=== PATIENT | male | born 1965 | race Native Hawaiian/Other Pacific Islander ===

== ENCOUNTER 2017-05-13 18:57 | Observation (INO) | payer OTHER ==
[2017-05-13 18:57] VITALS: BMI 22.3
[2017-05-13] MEDS ORDERED: Sodium Chloride 0.9% 500 ML IV STA (19:46)
[2017-05-13 20:16] LABS: BASO # 0.07 K/mm3 (0.0-2.0); BASO % 1.3 % (0.0-3.0); EOS # 0.1 (0.0-0.7); EOS % 1.1 % (1.5-5.0); GRAN # 3.89 (1.4-6.5); GRAN % 73.2 % (50.0-68.0); HEMOGLOBIN 14.7 gm/dL (14.0-18.0); LYMPH # 1.1 (1.2-3.4); LYMPH % 20.3 % (22.0-35.0); MEAN CELL VOLUME 86.3 fL (80.0-105.0); MEAN CORPUSCULAR HEMOGLOBIN 30.1 pg (25.0-35.0); MEAN CORPUSCULAR HGB CONC 34.8 g/dl (31.0-37.0); MEAN PLATELET VOLUME 9.1 fl (7.0-11.0); MONO # 0.2 (0.1-0.6); MONO % 4.1 % (1.0-6.0); PLATELET COUNT 212 10^3/uL (120.0-450.0); RBC 4.89 10^6/uL (3.5-6.1); RED CELL DISTRIBUTION WIDTH 13.1 % (11.5-14.5); WHITE BLOOD COUNT 5.3 10^3/ul (4.5-11.0)
[2017-05-13 20:22] LABS: ACETAMINOPHEN < 10.0 ug/ml (10.0-20.0); SALICYLATE < 1 mg/dL (2.0-20.0)
[2017-05-13 20:23] LABS: ALB/GLOB RATIO 1.4 (1.1-1.8); ALBUMIN 4.5 g/dL (3.0-4.8); ALT/SGPT 39 U/L (7-56); AST/SGOT 39 U/L (15-59); BLOOD UREA NITROGEN 12 mg/dL (7-21); GFR AFRICAN-AMERICAN > 60; GFR NON-AFRICAN AMERICAN > 60
--- NOTE | 2017-05-13 22:15 | ED PDOC ---
Arrival/HPI - General Chief Complaint: Weakness/Neurological Deficit Time Seen by Provider: 05/13/17 19:34 Historian: Patient - History of Present Illness Narrative History of Present Illness (Text): 05/13/17 19:45 Terence Song is a 52 year old male who presents to the emergency department complaining of generalized fatigue and near-syncope. States symptoms presented suddenly after reaching home from work. Describes symptoms as generalized weakness and "about to pass out." Currently states that symptoms are improving currently. Denies any fever, chills, headache, chest pain, shortness of breath, nausea, vomiting, or any other complaints at this time. Time/Duration: Prior to Arrival Symptom Course: Improving Severity Level: Mild Activities at Onset: Light Past Medical History - Provider Review Nursing Documentation Reviewed: Yes - Past Medical History Past Medical History: No Previous - Hematological/Oncological Other/Comment: pt's father is a doctor and pt spent some time in [place]. 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19 - Musculoskeletal/Rheumatological Hx Falls: No - Psychiatric Hx Substance Use: No - Past Surgical History Past Surgical History: No Previous - Anesthesia Hx Anesthesia: No Hx Anesthesia Reactions: No Hx Malignant Hyperthermia: No - Suicidal Assessment Feels Threatened In Home Enviroment: No Family/Social History - Physician Review Nursing Documentation Reviewed: Yes Family/Social History: No Known Family HX Smoking Status: Never Smoked Hx Alcohol Use: No Hx Substance Use: No Hx Substance Use Treatment: No Allergies/Home Meds Allergies/Adverse Reactions: Allergies ibuprofen [From Motrin] Allergy (Verified 05/13/17 19:26) RASH Sulfa (Sulfonamide Antibiotics) Allergy (Verified 05/13/17 19:26) RASH Home Medications: Home Meds Medication Instructions Recorded Confirmed Cholecalciferol (Vitamin D3) 5,000 iu PO QWK 04/01/15 05/13/17 [Vitamin D] Review of Systems - Physician Review All systems were reviewed & negative as marked: Yes - Review of Systems Constitutional: Fatigue. absent: Fevers Respiratory: Normal. absent: SOB, Cough Cardiovascular: Other (near syncope ). absent: Chest Pain, Palpitations Gastrointestinal: Normal. absent: Abdominal Pain, Diarrhea, Nausea, Vomiting Genitourinary Male: Normal Neurological: Dizziness. absent: Headache, Focal Weakness, Gait Changes, Speech Changes Psychiatric: Normal Physical Exam Vital Signs Reviewed: Yes Vital Signs Temp Pulse Pulse Resp BP Pulse Ox 05/14/17 02:46 98.5 F 62 62 18 162/97 H 05/14/17 02:05 62 16 143/64 99 05/13/17 22:00 60 16 150/91 H 99 05/13/17 19:21 99.2 F 80 18 162/91 H 98 Temperature: Afebrile Blood Pressure: Hypertensive Pulse: Regular Respiratory Rate: Normal Appearance: Positive for: Well-Appearing, Non-Toxic, Comfortable Pain Distress: None Mental Status: Positive for: Alert and Oriented X 3 - Systems Exam Head: Present: Atraumatic, Normocephalic Pupils: Present: PERRL Extroacular Muscles: Present: EOMI Conjunctiva: Present: Normal Mouth: Present: Moist Mucous Membranes Neck: Present: Normal Range of Motion. No: MIDLINE TENDERNESS, Paraspinal Tenderness Respiratory/Chest: Present: Clear to Auscultation, Good Air Exchange. No: Respiratory Distress, Accessory Muscle Use Cardiovascular: Present: Regular Rate and Rhythm, Normal S1, S2. No: Murmurs Abdomen: Present: Normal Bowel Sounds. No: Tenderness, Distention, Peritoneal Signs, Rebound, Guarding Upper Extremity: Present: Normal Inspection. No: Cyanosis, Edema Lower Extremity: Present: Normal Inspection. No: Edema Neurological: Present: GCS=15, CN II-XII Intact, Speech Normal, Motor Func Grossly Intact, Normal Sensory Function Skin: Present: Warm, Dry, Normal Color. No: Rashes Psychiatric: Present: Alert, Oriented x 3, Normal Insight, Normal Concentration Medical Decision Making ED Course and Treatment: 05/13/17 19:45 Impression: A 52 year old male who presents to the emergency department complaining of generalized weakness and near syncopal episode. Plan: -- CT Head -- EKG -- Labs, cardiac enzymes -- Chest X-ray -- IV Fluids -- Urinalysis -- Reassess and disposition Progress Notes: 05/13/17 20:15 EKG reviewed by me: Sinus bradycardia @ 56 bpm. Incomplete right bundle branch block. Minimal voltage criteria for LVH. 05/13/17 22:19 CT Head results reviewed: FINDINGS: Brain: Unremarkable. No hemorrhage. No significant white matter disease. No edema. Ventricles: Unremarkable. No ventriculomegaly. Bones/joints: Unremarkable. No acute fracture. Soft tissues: Unremarkable. Sinuses: Bilateral maxillary sinus polyps. Mastoid air cells: Unremarkable as visualized. No mastoid effusion. IMPRESSION: No acute findings. Patient was offered admission to the hospital for overnight observation following a near syncopal episode. But patient states he wants to sign out against medical advice. States he will follow up with his PMD tomorrow. I strongly advised to the patient to stay in the hospital for further monitoring, but patient states the he understands the risk of leaving against medical advice and is adamant in his decision. Leaving Against Medical Advice (AMA): The patient is choosing to leave against medical advice. I have personally explained to the patient that choosing to do so may result in permanent bodily harm or . I have discussed at great length that without further evaluation and monitoring there may be unforeseen circumstances and/or deterioration causing permanent bodily harm or as a result of their choice. The patient is alert, oriented, and shows the mental capacity to make clear decisions regarding the patients health care at this time. The patient continues to wish to leave against medical advice. The patient has been advised that they should return to the emergency room immediately if they change their mind at any time, or if their condition begins to change or worsen in any way. pt now agree to stay case d/w dr stanley accepts case 05/14/17 23:46 - Lab Interpretations Lab Results: 05/13/17 20:00 05/13/17 20:00 Lab Results 05/13/17 23:30: Urine Color Yellow, Urine Appearance Clear, Urine pH 7.0, Ur Specific [place] 1.010, Urine Protein Negative, Urine Glucose (UA) Negative, Urine Ketones Negative, Urine Blood Negative, Urine Nitrate Negative, Urine Bilirubin Negative, Urine Urobilinogen 0.2, Ur Leukocyte Esterase Negative 05/13/17 20:00: Salicylates < 1 L, Acetaminophen < 10.0 L 05/13/17 20:00: Sodium 142, Potassium 3.7, Chloride 102, Carbon Dioxide 27, Anion Gap 17, BUN 12, Creatinine 0.9, Est GFR ( Amer) > 60, Est GFR (Non- Af Amer) > 60, Random Glucose 143 H, Calcium 9.0, Total Bilirubin 0.8, AST 39, ALT 39, Alkaline Phosphatase 51, Total Protein 7.7, Albumin 4.5, Globulin 3.2, Albumin/Globulin Ratio 1.4 05/13/17 20:00: WBC 5.3 D, RBC 4.89, Hgb 14.7, Hct 42.2, MCV 86.3, MCH 30.1, MCHC 34.8, RDW 13.1, Plt Count 212, MPV 9.1, Gran % 73.2 H, Lymph % (Auto) 20.3 L, [place] % (Auto) 4.1, Eos % (Auto) 1.1 L, Baso % (Auto) 1.3, Gran # 3.89, Lymph # 1.1 L, [place] # 0.2, Eos # 0.1, Baso # 0.07 I have reviewed the lab results: Yes - RAD Interpretation Radiology Orders: 05/13/17 19:47 CHEST PORTABLE [RAD] Stat 05/13/17 19:50 HEAD W/O CONTRAST [CT] Stat - EKG Interpretation Interpreted by ED Physician: Yes Type: 12 lead EKG - Medication Orders Current Medication Orders: Discontinued Medications Sodium Chloride (Sodium Chloride 0.9%) 500 mls @ 1,000 mls/hr IV .Q30M STA Stop: 05/13/17 20:15 Last Admin: 05/13/17 19:58 Dose: 1,000 mls/hr - Scribe Statement The provider has reviewed the documentation as recorded by the Eva Stapleton Provider Attestation: Provider Scribe Attestation: All medical record entries made by the Evelinaibpepito were at my direction and personally dictated by me. I have reviewed the chart and agree that the record accurately reflects my personal performance of the history, physical exam, medical decision making, and the department course for this patient. I have also personally directed, reviewed, and agree with the discharge instructions and disposition. Disposition/Present on Arrival - Present on Arrival Any Indicators Present on Arrival: No History of DVT/PE: No History of Uncontrolled Diabetes: No Urinary Catheter: No History of Decub. Ulcer: No History Surgical Site Infection Following: None - Disposition Have Diagnosis and Disposition been Completed?: Yes Diagnosis: Near syncope Disposition: HOSPITALIZED Disposition Time: 23:00 Condition: FAIR
[2017-05-13 22:34] VITALS: O2SAT 99
[2017-05-14 00:09] LABS: URINE BILIRUBIN NEGATIVE (NEGATIVE); URINE BLOOD NEGATIVE (NEGATIVE); URINE GLUCOSE (UA) NEGATIVE (NEGATIVE); URINE LEUKOCYTE ESTERASE NEGATIVE Leu/uL (NEGATIVE); URINE NITRATE NEGATIVE (NEGATIVE); URINE PROTEIN NEGATIVE mg/dL (<30 mg/dL); URINE UROBILINOGEN 0.2 E.U./dL (<1 E.U./dL)
[2017-05-14 00:19] LABS: URINE APPEARANCE CLEAR (CLEAR); URINE COLOR YELLOW (YELLOW)
[2017-05-14 06:25] VITALS: RESP 20
--- NOTE | 2017-05-14 09:18 | RAD ---
HISTORY: weakness COMPARISON: 04/01/2015 FINDINGS: LUNGS: No active pulmonary disease. PLEURA: No significant pleural effusion identified, no pneumothorax apparent. CARDIOVASCULAR: Probably top-normal. Study is rotated towards the left Central pulmonary vasculature probably top-normal OSSEOUS STRUCTURES: No significant abnormalities. VISUALIZED UPPER ABDOMEN: Normal. OTHER FINDINGS: None. IMPRESSION: No active disease.
--- NOTE | 2017-05-14 09:52 | CT ---
PROCEDURE: CT HEAD WITHOUT CONTRAST. HISTORY: mcdaniel COMPARISON: None available. TECHNIQUE: Axial computed tomography images were obtained through the head/brain without intravenous contrast. Radiation dose: Total exam DLP = 780 mGy-cm. This CT exam was performed using one or more of the following dose reduction techniques: Automated exposure control, adjustment of the mA and/or kV according to patient size, and/or use of iterative reconstruction technique. FINDINGS: HEMORRHAGE: No intracranial hemorrhage. BRAIN: No mass effect or edema. No atrophy or chronic microvascular ischemic changes. VENTRICLES: Unremarkable. No hydrocephalus. CALVARIUM: Unremarkable. PARANASAL SINUSES: Unremarkable as visualized. No significant inflammatory changes. MASTOID AIR CELLS: Unremarkable as visualized. No inflammatory changes. OTHER FINDINGS: The report concurs with the preliminary [facility] report IMPRESSION: Normal CT of the Head.
[2017-05-14 12:41] VITALS: BP 148/62; PULSE 60; TEMP 98.5
--- NOTE | 2017-05-14 12:54 | CARD ---
APPROVED REPORT EKG Measurement Heart [id number] <Conclusion> Sinus bradycardia Incomplete right bundle branch block Minimal voltage criteria for LVH, may be normal variant Borderline ECG
--- NOTE | 2017-05-14 20:21 | HP ---
HISTORY OF PRESENT ILLNESS: This is a 52-year-old male who has come into the hospital complaining of fatigue. He states he felt weak. He had played 2 hours of tennis over the weekend. He says he had gone to his car and stuck for about 10 minutes. He had difficulty with walking normally. So, he came in to the ER for further evaluation. The patient had no complaints. He had no fevers or chills, no nausea, no vomiting, no abdominal pain or back pain, no dysuria, frequency, no nocturia. No focal weakness in the arms or legs. All other review of symptoms are within normal limits except what is mentioned. ALLERGIES: IBUPROFEN AND SULFA. FAMILY HISTORY: Significant for coronary artery disease. PAST MEDICAL HISTORY: Meningitis. SOCIAL HISTORY: He denies smoking, drinking. 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 HOME MEDICATIONS: Vitamin D. PHYSICAL EXAMINATION VITAL SIGNS: Temperature is 98, pulse is 60, blood pressure is 140/83, respirations 20, O2 saturation 99%. Height is 5 feet 9 inches, weight is 148 pounds. BMI is 21. GENERAL: The patient is lying in bed flat, comfortable, in no acute distress. HEENT: Anicteric sclera. Moist mucosa. Mucous membranes are pink and moist. NECK: No JVD, adenopathy, thyromegaly or bruits. CARDIOVASCULAR: S1, S2 are regular. No murmurs, rubs or gallops. LUNGS: Good bilateral air entry. No wheezes, rales or rhonchi. ABDOMEN: Bowel sounds are positive, soft, nontender, nondistended. No hepatosplenomegaly. NEUROLOGICAL: No facial asymmetry. Tongue is midline. No uvular deviation. Power is 5/5 in upper extremity and lower extremity and he is able to stand on one foot. He is able to walk normally. SKIN: Good skin turgor. No rashes. EXTREMITIES: No edema. 2+ pulses. Full range of motion. PSYCHIATRIC: He is alert, awake, and oriented x3. He has good insight, no anxiety. Normal affect. LYMPHADENOPATHY: No anterior or posterior cervical adenopathy. IMAGING: He had a CT of the head done that showed no acute findings. EKG showed sinus bradycardia 56. No ST-T changes. He had an echo done in 03/2015 that showed that the LV function was normal. There is mild concentric LVH. He had a stress test done in 03/2015 which was normal. ASSESSMENT: Fatigued. PLAN: The patient is currently comfortable. His blood work is fairly normal. He had salicylates and acetaminophen that was negative. Urine for blood, nitrites, and bilirubin are negative. The patient is going to be discharged home. The chest x-ray showed no infiltrates. He was given IV fluids. He is going to follow up as an outpatient in the office. DIET: 2-g sodium. CONDITION: Stable. ACTIVITIES: Increase as tolerated. Richard Woodson MD
== END 2017-05-14 16:15 | disposition home or self-care (01) ==
LOC: ED 18:57 → ERH 05-14 01:07 → 2RNO 05-14 02:54
PROVIDERS: ADMIT Internal Medicine Nephrology; ATTEND Internal Medicine Nephrology
DX: R53.1 Weakness (principal); R53.83 Other fatigue; Z88.2 Allergy status to sulfonamides; Z82.49 Family history of ischemic heart disease and other diseases of the circulatory system
CPT/HCPCS: 70450; 71010; 80053; 80329; 81003; 85025; 93005; 96360; 99285; G0378; J7040

== ENCOUNTER 2017-11-18 10:21 | Emergency (ER) | payer BC, OTHER ==
[2017-11-18 10:22] VITALS: BMI 22.3
[2017-11-18 10:53] VITALS: RESP 18; TEMP 98.7
--- NOTE | 2017-11-18 11:33 | ED PDOC ---
Arrival/HPI - General Chief Complaint: Cough, Cold, Congestion Time Seen by Provider: 11/18/17 11:20 Historian: Patient - History of Present Illness Narrative History of Present Illness (Text): 11/18/17 11:32 A 52 year old male presents to the emergency department complaining of cold like symptoms for the past 12 days. Patient reports his symptoms began before traveling to the [facility] over two weeks ago. States family member had cold symptoms. He noted a subjective fever, chills, productive cough, nasal congestion and sore throat. While in the [facility] he was seen by a physician who prescribed him ampicillin and Robitussin. He reports following up with his PMD after traveling back, who represcribed ampicillin. Patient reports this morning he developed chest pain while taking deep breaths and blood tinged sputum, which caused him to come in for further evaluation. Patient denies any nausea, vomiting, abdominal pain, urinary symptoms, lower extremity pain/ swelling, or any other complaints. Patient had a normal stress test done in 2014. Denies calf pain or swelling. Denies dizziness or palpitations. Reports feeling very congested and that it is difficult to breathe through his nose. No facial swelling. No pain with eye movements. PMD: Dr. Woodson 11/20/17 15:53 Time/Duration: Other (12 days) Context: Home Past Medical History - Provider Review Nursing Documentation Reviewed: Yes - Travel History If Yes, travel location?: [facility] - Infectious Disease Hx of Infectious Diseases: None - Past Medical History Past Medical History: No Previous - Pulmonary Hx Respiratory Disorders: Yes Hx Bronchitis: Yes - Neurological Hx Neurological Disorder: Yes Hx Meningitis: Yes - Hematological/Oncological Other/Comment: pt's father is a doctor and pt spent some time in [place]. 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19 - Musculoskeletal/Rheumatological Hx Musculoskeletal Disorders: No - Gastrointestinal Hx Gastrointestinal Disorders: No - Genitourinary/Gynecological Hx Genitourinary Disorders: No - Psychiatric Hx Psychophysiologic Disorder: No Hx Substance Use: No - Past Surgical History Past Surgical History: No Previous - Anesthesia Hx Anesthesia: No Hx Anesthesia Reactions: No Hx Malignant Hyperthermia: No - Suicidal Assessment Feels Threatened In Home Enviroment: No Family/Social History - Physician Review Nursing Documentation Reviewed: Yes Family/Social History: No Known Family HX Smoking Status: Never Smoked Hx Alcohol Use: No Hx Substance Use: No Hx Substance Use Treatment: No Allergies/Home Meds Allergies/Adverse Reactions: Allergies ibuprofen [From Motrin] Allergy (Verified 11/18/17 10:53) RASH Sulfa (Sulfonamide Antibiotics) Allergy (Verified 11/18/17 10:53) RASH Home Medications: Home Meds Medication Instructions Recorded Confirmed AMPicillin [Ampicillin] 500 mg PO TID 11/18/17 11/18/17 Review of Systems - Review of Systems Constitutional: Fevers, Night Sweats ENT: Sore Throat, Rhinorrhea, Sinus Congestion Respiratory: Cough, Sputum Cardiovascular: Chest Pain. absent: CARTAGENA Gastrointestinal: absent: Abdominal Pain, Nausea, Vomiting Genitourinary Male: absent: Dysuria, Frequency, Hematuria Skin: absent: Rash Neurological: absent: Headache, Dizziness Endocrine: absent: Diaphoresis Hemo/Lymphatic: absent: Easy Bleeding Physical Exam - Physical Exam Narrative Physical Exam (Text): Head: Atraumatic. Normocephalic. Eyes: PERRL. EOMI. Conjunctivae are not pale. ENT: Mucous membranes are moist and intact. Oropharynx is clear and symmetric. No facial edema. Rhinorrhea, clear. Neck: Supple. Full ROM. No JVD. No lymphadenopathy. Cardiovascular: Regular rate. Regular rhythm. No murmurs, rubs, or gallops. Distal pulses are 2+ and symmetric. Pulmonary/Chest: No evidence of respiratory distress. Clear to auscultation bilaterally. No wheezing, rales or rhonchi. Palpable chest wall discomfort with no erythema or edema. Abdominal: Soft and non-distended. There is no tenderness. No rebound, guarding, or rigidity. No organomegaly. Good bowel sounds. Back: No CVA tenderness. Extremities: No edema. No cyanosis. No clubbing. Full range of motion in all extremities. No calf tenderness. Skin: Skin is warm and dry. No petechiae. No purpura. Neurological: Alert, awake, and oriented . Motor and sensory intact with no meningeal signs. Psychiatric: Good eye contact. Normal interaction, affect, and behavior. Vital Signs Reviewed: Yes Vital Signs Temp Pulse Resp BP Pulse Ox 11/18/17 14:22 77 18 132/73 98 11/18/17 10:48 98.7 F 79 18 158/79 H 97 Temperature: Afebrile Blood Pressure: Hypertensive Pulse: Regular Respiratory Rate: Normal Appearance: Positive for: Well-Appearing, Non-Toxic, Comfortable Pain Distress: None Mental Status: Positive for: Alert and Oriented X 3 Medical Decision Making ED Course and Treatment: 11/18/17 11:32 Impression: A 52 year old male with chest pain while taking deep breaths and blood tinged sputum since this morning. Patient notes subjective fever, chills, productive cough, nasal congestion and sore throat. Differential Diagnosis included but are not limited to: PNA vs. Sinusitis vs. PE vs. Bronchitis Plan: -- Chest xray -- EKG -- Labs -- Influenza A B stat -- Reassess and disposition Progress Notes: Patient's pain is worse with coughing, and breaths. No wheezing or hypoxia. No known prior hx of dvt. Nonsmoker. No previously known hypercoagulable state. As pain with coughing and movements, current pain unlikely cardiac in nature as EKG , troponin and hx not typical of cardiac etiology. Ddimer unremarkable. No gross hematemesis. Sputum is mildly blood tinged. Report Date : 11/18/2017 13:49:23 Procedure: Chest xray Dictator : Nicola Salguero MD IMPRESSION: No active disease. Suspect bronchitis, URI. As nontoxic, no respiratory distress, limitations of imaging studies reviewed with patient and communicated with his PMD and patient for close follow-up. 11/20/17 16:05 - Lab Interpretations Lab Results: 11/18/17 11:50 11/18/17 11:50 Lab Results 11/18/17 11:50: Sodium 139, Potassium 3.9, Chloride 103, Carbon Dioxide 28, Anion Gap 12, BUN 12, Creatinine 0.8, Est GFR ( Amer) > 60, Est GFR (Non- Af Amer) > 60, Random Glucose 99, Calcium 9.2, Total Bilirubin 0.7, AST 37, ALT 62 H, Alkaline Phosphatase 75, Lactate Dehydrogenase 446, Total Creatine Kinase 151, Troponin I < 0.01 D, NT-Pro-B Natriuret Pep 23.6, Total Protein 8.0, Albumin 4.6, Globulin 3.4, Albumin/Globulin Ratio 1.4 11/18/17 11:50: PT 12.5, INR 1.09 H, APTT 32.6, D-Dimer, Quantitative < 200 11/18/17 11:50: Influenza Typ A,B (EIA) Negative for flu a/b 11/18/17 11:50: WBC 9.1 D, RBC 4.76, Hgb 14.3, Hct 41.6 L, MCV 87.4, MCH 30.0, MCHC 34.4, RDW 12.8, Plt Count 256, MPV 8.9, Gran % 78.0 H, Lymph % (Auto) 12.7 L, [place] % (Auto) 8.2 H, Eos % (Auto) 0.9 L, Baso % (Auto) 0.2, Gran # 7.08 H, Lymph # 1.2, [place] # 0.7 H, Eos # 0.1, Baso # 0.02 I have reviewed the lab results: Yes - RAD Interpretation Radiology Orders: 11/18/17 11:33 CHEST TWO VIEWS (PA/LAT) [RAD] Stat 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 I have reviewed the chart and agree that the record accurately reflects my personal performance of the history, physical exam, medical decision making, and the department course for this patient. I have also personally directed, reviewed, and agree with the discharge instructions and disposition. Disposition/Present on Arrival - Present on Arrival Any Indicators Present on Arrival: No History of DVT/PE: No History of Uncontrolled Diabetes: No Urinary Catheter: No History of Decub. Ulcer: No History Surgical Site Infection Following: None - Disposition Have Diagnosis and Disposition been Completed?: Yes Diagnosis: Bronchitis Disposition: HOME/ ROUTINE Disposition Time: 14:14 Patient Plan: Discharge Condition: GOOD Discharge Instructions (ExitCare): Sinusitis (ED), Acute Bronchitis (ED) Additional Instructions: For any facial swelling, any chest pain, any shortness of breath, any headaches , any leg pain or swelling, any rash, any fevers, any difficulty swallowing, any persistent or worsening of symptoms, get rechecked. Follow-up with your physician in 1-2 days. Prescriptions: Azithromycin [Zithromax] 250 mg PO DAILY #6 tab Cetirizine HCl [Zyrtec] 10 mg PO DAILY #5 capsule Referrals: Richard Woodson MD [Primary Care Provider] - Follow up with primary Forms: [facility] (Serbian), WORK NOTE
[2017-11-18 12:01] LABS: BASO # 0.02 K/mm3 (0.0-2.0); BASO % 0.2 % (0.0-3.0); EOS # 0.1 (0.0-0.7); EOS % 0.9 % (1.5-5.0); GRAN # 7.08 (1.4-6.5); HEMOGLOBIN 14.3 g/dL (14.0-18.0); LYMPH # 1.2 (1.2-3.4); LYMPH % 12.7 % (22.0-35.0); MEAN CELL VOLUME 87.4 fl (80.0-105.0); MEAN CORPUSCULAR HGB CONC 34.4 g/dl (31.0-37.0); MEAN PLATELET VOLUME 8.9 fl (7.0-11.0); MONO # 0.7 (0.1-0.6); MONO % 8.2 % (1.0-6.0); RBC 4.76 10^6/uL (3.5-6.1); RED CELL DISTRIBUTION WIDTH 12.8 % (11.5-14.5); WHITE BLOOD COUNT 9.1 10^3/ul (4.5-11.0)
[2017-11-18 12:11] LABS: ALB/GLOB RATIO 1.4 (1.1-1.8); ALBUMIN 4.6 g/dL (3.0-4.8); ALT/SGPT 62 U/L (7-56); AST/SGOT 37 U/L (17-59); BLOOD UREA NITROGEN 12 mg/dL (7-21); CALCIUM 9.2 mg/dL (8.4-10.5); GFR AFRICAN-AMERICAN > 60; GFR NON-AFRICAN AMERICAN > 60
[2017-11-18 12:17] LABS: INR 1.09 (0.93-1.08); PARTIAL THROMBOPLASTIN TIME 32.6 Seconds (25.1-36.5); PROTHROMBIN TIME 12.5 SECONDS (9.4-12.5)
[2017-11-18 12:22] LABS: D DIMER < 200 ng/mL (0-243)
[2017-11-18 12:23] LABS: B-TYPE NATRIURETIC PEPTIDE 23.6 pg/mL (0-450); TROPONIN I < 0.01 ng/mL
--- NOTE | 2017-11-18 13:51 | RAD ---
HISTORY: cough for two weeks, chest pain COMPARISON: 05/13/2017 TECHNIQUE: Chest PA and lateral FINDINGS: LUNGS: No active pulmonary disease. PLEURA: No significant pleural effusion identified. No pneumothorax apparent. CARDIOVASCULAR: Normal. OSSEOUS STRUCTURES: No significant abnormalities. VISUALIZED UPPER ABDOMEN: Normal. OTHER FINDINGS: None. IMPRESSION: No active disease.
[2017-11-18 14:57] VITALS: BP 132/73; PULSE 77; O2SAT 98
--- NOTE | 2017-11-18 16:56 | CARD ---
APPROVED REPORT EKG Measurement Heart [id number] <Conclusion> Normal sinus rhythm Incomplete right bundle branch block Borderline ECG
== END 2017-11-18 14:58 | disposition home or self-care (01) ==
LOC: ED 10:21
DX: J40 Bronchitis, not specified as acute or chronic (principal)

== ENCOUNTER 2018-01-02 13:33 | Emergency (ER) | payer OTHER ==
[2018-01-02 13:33] VITALS: BMI 22.3
[2018-01-02 13:46] VITALS: TEMP 98.6
--- NOTE | 2018-01-02 14:20 | ED PDOC ---
Arrival/HPI - General Chief Complaint: Body Fluid Exposure Time Seen by Provider: 01/02/18 13:51 Historian: Patient - History of Present Illness Narrative History of Present Illness (Text): 01/02/18 14:10 52 year old male, who is an employee at [employer], presents to the emergency department for evaluation s/p incident at work. 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 Patient denies other complaints and notes washing his face after the incident. PMD: Dr. Woodson Time/Duration: Prior to Arrival Symptom Onset: Sudden Symptom Course: Unchanged Context: Work Past Medical History - Provider Review Nursing Documentation Reviewed: Yes - Infectious Disease Hx of Infectious Diseases: None - Past Medical History Past Medical History: No Previous - Cardiac Hx Cardiac Disorders: No - Pulmonary Hx Respiratory Disorders: Yes Hx Bronchitis: Yes - Neurological Hx Neurological Disorder: Yes Hx Meningitis: Yes - HEENT Hx HEENT Disorder: No - Renal Hx Renal Disorder: No - Endocrine/Metabolic Hx Endocrine Disorders: No - Hematological/Oncological Hx Blood Disorders: Yes Other/Comment: malaria - Musculoskeletal/Rheumatological Hx Musculoskeletal Disorders: No - Gastrointestinal Hx Gastrointestinal Disorders: No - Genitourinary/Gynecological Hx Genitourinary Disorders: No - Psychiatric Hx Psychophysiologic Disorder: No Hx Substance Use: No - Past Surgical History Past Surgical History: No Previous - Anesthesia Hx Anesthesia: No Hx Anesthesia Reactions: No Hx Malignant Hyperthermia: No - Suicidal Assessment Feels Threatened In Home Enviroment: No Family/Social History - Physician Review Nursing Documentation Reviewed: Yes Family/Social History: Unknown Family HX Smoking Status: Never Smoked Hx Alcohol Use: No Hx Substance Use: No Hx Substance Use Treatment: No Allergies/Home Meds Allergies/Adverse Reactions: Allergies ibuprofen [From Motrin] Allergy (Verified 01/02/18 13:42) RASH Sulfa (Sulfonamide Antibiotics) Allergy (Verified 01/02/18 13:42) RASH Home Medications: Home Meds Medication Instructions Recorded Confirmed No Known Home Med 01/02/18 01/02/18 Review of Systems - Physician Review All systems were reviewed & negative as marked: Yes - Review of Systems Constitutional: Other (medical clearance for patient sneezing on his face). absent: Fevers Respiratory: absent: SOB Physical Exam Vital Signs Reviewed: Yes Vital Signs Temp Pulse Resp BP Pulse Ox 01/02/18 14:55 78 18 126/82 99 01/02/18 13:42 98.6 F 73 16 145/88 98 Temperature: Afebrile Blood Pressure: Normal Pulse: Regular Respiratory Rate: Normal Appearance: Positive for: Well-Appearing, Non-Toxic, Comfortable Pain Distress: None Mental Status: Positive for: Alert and Oriented X 3 - Systems Exam Head: Present: Atraumatic, Normocephalic Pupils: Present: PERRL Extroacular Muscles: Present: EOMI Conjunctiva: Present: Normal Mouth: Present: Moist Mucous Membranes Nose (External): Present: Atraumatic Neck: No: Meningeal Signs, MIDLINE TENDERNESS, Paraspinal Tenderness, Lymphadenopathy Respiratory/Chest: Present: Clear to Auscultation, Good Air Exchange. No: Respiratory Distress, Accessory Muscle Use, Wheezes, Rales, Retracting, Rhonchi Cardiovascular: Present: Regular Rate and Rhythm, Normal S1, S2. No: Murmurs Neurological: Present: GCS=15, CN II-XII Intact, Speech Normal Skin: Present: Warm, Dry, Normal Color. No: Rashes Psychiatric: Present: Alert, Oriented x 3, Normal Insight, Normal Concentration Medical Decision Making ED Course and Treatment: 01/02/18 Impression: 52 year old male with unremarkable physical exam who came in for medical clearance s/p patient's fluid exposure Plan: -- Patient was exposed to minimal body fluid as described. He is at low risk for lara HIV, hepatitis or any other illness from this patient. He irrigated his face well. We discussed the options together for Post exposure prophylaxis and agreed that since it was such a low risk there is no indication for treatment at this time. Patient will make sure to follow up withe [facility]. He was given ample opportunity to ask any questions. Progress Notes: 01/05/18 11:11 I called the patient today to review the lab results with him. He was informed to make sure to follow up with [facility] and that he will need repeat blood work in the future as directed by Prim Laundry. Patient does not have any medical complaints at this time. - Lab Interpretations Lab Results: 01/02/18 14:30 01/02/18 14:30 Lab Results 01/02/18 14:30: RPR Nonreactive 03/09/18 14:30: HIV 1&2 Antibody Screen Negative 01/02/18 14:30: Hep Bs Antibody Positive 01/02/18 14:30: Hepatitis A IgM Ab Negative, Hep Bs Antigen Negative, Hep B Core IgM Ab Negative, Hepatitis C Antibody Negative 01/02/18 14:30: Sodium 141, Potassium 3.6, Chloride 103, Carbon Dioxide 27, Anion Gap 15, BUN 14, Creatinine 0.7 L, Est GFR ( Amer) > 60, Est GFR ( Non-Af Amer) > 60, Random Glucose 143 H, Calcium 9.3, Total Bilirubin 0.7, AST 36, ALT 41, Alkaline Phosphatase 50, Total Protein 7.7, Albumin 4.4, Globulin 3.3, Albumin/Globulin Ratio 1.3, Amylase 85 01/02/18 14:30: WBC 5.3 D, RBC 4.84, Hgb 14.4, Hct 42.2, MCV 87.2, MCH 29.8, MCHC 34.1, RDW 13.5, Plt Count 236, MPV 8.9, Gran % 61.0, Lymph % (Auto) 30.8, Bennett % (Auto) 5.3, Eos % (Auto) 2.3, Baso % (Auto) 0.6, Gran # 3.21, Lymph # ( Auto) 1.6, Bennett # (Auto) 0.3, Eos # (Auto) 0.1, Baso # (Auto) 0.03 - Scribe Statement The provider has reviewed the documentation as recorded by the Eva Dominguez Provider Scribe Attestation: All medical record entries made by the Eva were at my direction and personally dictated by me. I have reviewed the chart and agree that the record accurately reflects my personal performance of the history, physical exam, medical decision making, and the department course for this patient. I have also personally directed, reviewed, and agree with the discharge instructions and disposition. Disposition/Present on Arrival - Present on Arrival Any Indicators Present on Arrival: No History of DVT/PE: No History of Uncontrolled Diabetes: No Urinary Catheter: No History of Decub. Ulcer: No History Surgical Site Infection Following: None - Disposition Have Diagnosis and Disposition been Completed?: Yes Diagnosis: Exposure to blood or body fluid Disposition: HOME/ ROUTINE Disposition Time: 14:56 Patient Plan: Discharge Condition: GOOD Additional Instructions: Mr Song, thank you for letting us take care of you today. Your provider was Dr. Ngo. You were treated for Fluid Exposure. The emergency medical care you received today was directed at your acute symptoms. If you were prescribed any medication, please fill it and take as directed. It may take several days for your symptoms to resolve. Return to the Emergency Department if your symptoms worsen, do not improve, or if you have any other problems. [facility] Employee Regarding your Work Related Injury, you are instructed to do all of the following by next day: 1. Notify [facility] Employee Health Department of the sustained injury and arrange for any follow-up appointments if needed during the next business day. If the office is closed or no answer is received, please leave a detailed voice message. 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 Employee Health can be reached at [phone]. 2. If there is time lost, notify [facility] Human Resources Department of the work related injury the next business day at [phone]. Thank you for allowing the [employer] team to be part of your care today. If you had an X-Ray or CT scan: A Radiologist will review the ED reading if any change in treatment is needed we will contact you. If you had a blood, urine, or wound culture: It will take several days for the results, if any change in treatment is needed we will contact you. If you had an STI test: It will take 48 hours for the results. Please call after 1 week if you have not heard back. Referrals: Richard Woodson MD [Primary Care Provider] - Follow up with primary Forms: [employer] (Czech)
[2018-01-02 14:49] LABS: BASO # 0.03 K/mm3 (0.0-2.0); BASO % 0.6 % (0.0-3.0); EOS # 0.1 (0.0-0.7); EOS % 2.3 % (1.5-5.0); GRAN # 3.21 (1.4-6.5); HEMOGLOBIN 14.4 g/dL (14.0-18.0); LYMPH # 1.6 (1.2-3.4); LYMPH % 30.8 % (22.0-35.0); MEAN CELL VOLUME 87.2 fl (80.0-105.0); MEAN CORPUSCULAR HEMOGLOBIN 29.8 pg (25.0-35.0); MEAN CORPUSCULAR HGB CONC 34.1 g/dl (31.0-37.0); MEAN PLATELET VOLUME 8.9 fl (7.0-11.0); MONO # 0.3 (0.1-0.6); MONO % 5.3 % (1.0-6.0); RBC 4.84 10^6/uL (3.5-6.1); RED CELL DISTRIBUTION WIDTH 13.5 % (11.5-14.5); WHITE BLOOD COUNT 5.3 10^3/ul (4.5-11.0)
[2018-01-02 14:56] VITALS: BP 126/82; PULSE 78; RESP 18; O2SAT 99
[2018-01-02 15:01] LABS: ALB/GLOB RATIO 1.3 (1.1-1.8); ALBUMIN 4.4 g/dL (3.0-4.8); ALT/SGPT 41 U/L (7-56); AMYLASE 85 U/L (35-125); AST/SGOT 36 U/L (17-59); BLOOD UREA NITROGEN 14 mg/dL (7-21); CALCIUM 9.3 mg/dL (8.4-10.5); GFR AFRICAN-AMERICAN > 60; GFR NON-AFRICAN AMERICAN > 60
[2018-01-02 22:29] LABS: HEPATITIS B SURFACE AG Negative (NEGATIVE)
[2018-01-02 22:35] LABS: HEPATITIS A IGM NEGATIVE (NEGATIVE); HEPATITIS B CORE AB NEGATIVE (NEGATIVE)
[2018-01-02 22:47] LABS: HEPATITIS C ANTIBODY NEGATIVE (NEGATIVE)
== END 2018-01-02 14:56 | disposition home or self-care (01) ==
LOC: ED 13:33
DX: Z77.21 Contact with and (suspected) exposure to potentially hazardous body fluids (principal)

== ENCOUNTER 2018-12-22 13:25 | Outpatient (CLI) | payer OTHER | END 2018-12-22 13:26 | disposition home or self-care (01) | LOC: LAB 13:25 ==

== ENCOUNTER 2019-03-25 09:09 | Emergency (ER) | payer OTHER ==
[2019-03-25 09:27] VITALS: BMI 21.2
--- NOTE | 2019-03-25 09:56 | ED PDOC ---
Arrival/HPI - General Chief Complaint: Bite Time Seen by Provider: 03/25/19 09:11 Historian: Patient - History of Present Illness Narrative History of Present Illness (Text): 54 year old male with no significant past medical history presents to the emergency department complaining of rash on left arm X 3 days. States the rash began after playing tennis outside. Initially began with itchiness to the left forearm with three small pustules that have since progressed to surrounding erythema and vesicles that are now weeping yellow serous fluid starting today. Patient has experienced continued pruritis. Started on Doxycycline by PMD 2 days ago for presumed bug bites. Pt has taken 2 doses thus far. Denies fever, chills, joint pain, cough congestion, extremity swelling/numbness/paresthesia/pain/or weakness, chest pain, SOB, nausea, vomiting, dizziness, or any other associated symptoms. Past Medical History - Provider Review Nursing Documentation Reviewed: Yes - Infectious Disease Hx of Infectious Diseases: None - Past Medical History Past Medical History: No Previous - Cardiac Hx Cardiac Disorders: No - Pulmonary Hx Respiratory Disorders: Yes Hx Bronchitis: Yes - Neurological Hx Neurological Disorder: Yes Hx Meningitis: Yes - HEENT Hx HEENT Disorder: No - Renal Hx Renal Disorder: No - Endocrine/Metabolic Hx Endocrine Disorders: No - Hematological/Oncological Hx Blood Disorders: Yes Other/Comment: malaria - Musculoskeletal/Rheumatological Hx Musculoskeletal Disorders: No - Gastrointestinal Hx Gastrointestinal Disorders: No - Genitourinary/Gynecological Hx Genitourinary Disorders: No - Psychiatric Hx Psychophysiologic Disorder: No Hx Substance Use: No - Past Surgical History Past Surgical History: No Previous - Anesthesia Hx Anesthesia: No Hx Anesthesia Reactions: No Hx Malignant Hyperthermia: No - Suicidal Assessment Feels Threatened In Home Enviroment: No Family/Social History - Physician Review Nursing Documentation Reviewed: Yes Family/Social History: No Known Family HX Smoking Status: Never Smoked Hx Alcohol Use: No Hx Substance Use: No Hx Substance Use Treatment: No Allergies/Home Meds Allergies/Adverse Reactions: Allergies ibuprofen [From Motrin] Allergy (Verified 01/02/18 13:42) RASH Sulfa (Sulfonamide Antibiotics) Allergy (Verified 01/02/18 13:42) RASH Home Medications: Home Meds Medication Instructions Recorded Confirmed Doxycycline Hyclate [Doryx] 0 mg PO DAILY 03/25/19 03/25/19 Review of Systems - Review of Systems Constitutional: Normal. absent: Fevers Eyes: Normal. absent: Vision Changes Respiratory: Normal. absent: SOB Cardiovascular: Normal. absent: Chest Pain, Palpitations Gastrointestinal: Normal. absent: Abdominal Pain, Nausea, Vomiting Musculoskeletal: Normal. absent: Back Pain, Neck Pain Skin: Rash Neurological: Normal. absent: Headache, Dizziness Physical Exam Vital Signs Reviewed: Yes Vital Signs Temp Pulse Resp BP Pulse Ox 03/25/19 09:27 98.6 F 69 18 133/81 97 Temperature: Afebrile Blood Pressure: Normal Pulse: Regular Respiratory Rate: Normal Appearance: Positive for: Well-Appearing, Non-Toxic, Comfortable Pain Distress: None Mental Status: Positive for: Alert and Oriented X 3 - Systems Exam Head: Present: Atraumatic, Normocephalic Pupils: Present: PERRL Extroacular Muscles: Present: EOMI Conjunctiva: Present: Normal Mouth: Present: Moist Mucous Membranes Neck: Present: Normal Range of Motion Upper Extremity: Present: Normal ROM, NORMAL PULSES, Neurovascularly Intact, Capillary Refill < 2s, Other (see skin exam). No: Cyanosis, Edema, Tenderness, Swelling, Temperature Abnormalties Lower Extremity: Present: Normal ROM Neurological: Present: GCS=15, Speech Normal, Motor Func Grossly Intact, Normal Sensory Function, Gait Normal Skin: Present: Warm, Dry, Other (erythematous, blanchable, pruritic, maculopapular rash with scattered vesicles, some open and draining yellow serous fluid, some crusted - to left distal volar forearm) Psychiatric: Present: Alert, Oriented x 3, Normal Insight, Normal Concentration Medical Decision Making ED Course and Treatment: Rash suspicious for allergic contact dermatitis secondary to posion kae, possibly from playing tennis outside a few days ago. Pt evaluated and examined at bedside by ED attending Dr. Rocha who recommends PMD followup and supportive treatment. Agrees with diagnosis of poison kae dermatitis. Diagnostic testing results and plan of care discussed with patient. Strict instructions given regarding importance of followup, and signs/symptoms to return to ER including fever, joint pain, vomiting, or any other new/worsening symptoms. Pt verbalized understanding of discussion. Patient is A&Ox3, ambulating with steady gait, with vital signs stable for discharge. Disposition/Present on Arrival - Present on Arrival Any Indicators Present on Arrival: No History of DVT/PE: No History of Uncontrolled Diabetes: No Urinary Catheter: No History of Decub. Ulcer: No History Surgical Site Infection Following: None - Disposition Have Diagnosis and Disposition been Completed?: Yes Diagnosis: Allergic contact dermatitis Disposition: HOME/ ROUTINE Disposition Time: 10:20 Patient Plan: Discharge Condition: STABLE Discharge Instructions (ExitCare): Poison Kae, Contact Dermatitis (DC) Additional Instructions: Speak with Dr. Recinos regarding continuation of antibiotics Apply calamine lotion nightly after cool bath Keep rash open to air while at home. Otherwise, keep loosely covered while at work Followup with primary doctor within 2 days Return to ER with any new/worsening symptoms Referrals: Mackenzie Oliva MD [Staff Provider] - Follow up with primary Forms: [employer] (Romanian), WORK NOTE
[2019-03-25 10:41] VITALS: BP 130/7; PULSE 79; RESP 17; TEMP 97.7; O2SAT 99
== END 2019-03-25 10:41 | disposition home or self-care (01) ==
LOC: ED 09:09
DX: L23.9 Allergic contact dermatitis, unspecified cause (principal)